=== PATIENT | female | born 1990 | race Caucasian/White ===

== ENCOUNTER 2019-06-04 16:17 | Emergency (ER) | payer MEDICAID ==
[~2019-06-04] VITALS: Ht 162.6 cm; Wt 149.7 kg
[2019-06-04 16:17] VITALS: BP_SYST 122
[2019-06-04] MEDS ORDERED: MECLIZINE HCL 25 MG TABLET (ANITVERT) PO ONE ×2 (17:00→18:00)
[2019-06-04 18:52] VITALS: BP_SYST 122
== END 2019-06-04 18:52 | disposition home or self-care (01) ==
LOC: SED 17:41
DX: R42 Dizziness and giddiness (principal); E11.9 Type 2 diabetes mellitus without complications; Z88.0 Allergy status to penicillin
CPT/HCPCS: 70450; 99284; J8597